=== PATIENT | male | born 1965 | race Caucasian/White ===

== ENCOUNTER 2022-02-02 14:13 | Emergency (ER) | payer OTHER ==
[~2022-02-02] VITALS: Ht 170.2 cm; Wt 90.7 kg
--- NOTE | 2022-02-02 14:15 | NUR ---
Pt brought by self, A&Ox4, pt presents to ER with headache,blurred vision x 2 days after hitting a metal post few days ago, skin pink and warm, cap refill <3, VSS, will cont to monitor.
[2022-02-02 14:23] VITALS: BP_SYST 167
--- NOTE | 2022-02-02 15:00 | NUR ---
Dr Rick evaluating patient at bedside
[2022-02-02] MEDS ORDERED: IBUP-1971 PO (17:33)
[2022-02-02] MEDS ORDERED: SOM350 PO (17:33)
--- NOTE | 2022-02-02 17:48 | NUR ---
Patient given written and verbal discharge instructions and verbalizes understanding. ER MD discussed with patient the results and treatment provided. Patient in stable condition. ID arm band removed. Rx of Soma and Motrin given. Patient educated on pain management and to follow up with PMD. Pain Scale 0/10. Opportunity for questions provided and answered. Medication side effect fact sheet provided.
[2022-02-02 17:49] VITALS: BP_SYST 167
--- NOTE | 2022-02-02 17:50 | NUR ---
Note mariangelone in EDM - 02/02/22 at 1751 by [email or web address] Patient given written and verbal discharge instructions and verbalizes understanding. ER discussed with patient the results and treatment provided. Patient in stable condition. ID arm band rX of Ibuprofen and Soma given. Patient educated on pain management and to follow up with PMD. Pain Scale . Opportunity for questions provided and answered. Medication side effect fact sheet provided.
[2022-02-05] MEDS ORDERED: LISI-209 PO (05:17)
[2022-02-05] MEDS ORDERED: INSU100V9 SUBCUT (05:17)
[2022-02-05] MEDS ORDERED: LIP20 PO (05:17)
== END 2022-02-02 17:49 | disposition home or self-care (01) ==
LOC: SED 14:13
DX: S13.4XXA Sprain of ligaments of cervical spine, initial encounter (principal); S33.5XXA Sprain of ligaments of lumbar spine, initial encounter; S70.02XA Contusion of left hip, initial encounter; S70.01XA Contusion of right hip, initial encounter; V47.5XXA Car driver injured in collision with fixed or stationary object in traffic accident, initial encounter; Y93.89 Activity, other specified; Y92.89 Other specified places as the place of occurrence of the external cause; Y99.8 Other external cause status
CPT/HCPCS: 72040-TC; 72100-TC; 72170-TC; 99284